=== PATIENT | female | born 1995 | race African-American/Black ===

== ENCOUNTER 2018-08-07 16:54 | Emergency (ER) | payer OTHER ==
[2018-08-07 17:07] VITALS: TEMP 97.7; BMI 19.5
--- NOTE | 2018-08-07 17:08 | PDOC ---
Rapid Medical Evaluation Chief Complaint: Chest Pain Time Seen by Provider: 08/07/18 17:04 Medical Evaluation: Allergies Allergy/AdvReac Type Severity Reaction Status Date / Time No Known Allergies Allergy Verified 08/02/15 13:48 08/07/18 17:05 I have performed a brief in-person evaluation of this patient. The patient presents with a chief complaint of: chest pain, "breathing makes my whole face numb" - recent cardiac ablation for WPW at [facility] on Friday by Dr. Banda, cards is Dr. Nair. denies shortness of breath or pleuritic chest pain. 09/23 pain. LMP 07/02. got back from [place] week before surgery. denies OCPs/hormones. Pertinent physical exam findings: well appearing, HR 95, O2 sat 100% I have ordered the following: EKG, labs The patient will proceed to the ED for further evaluation.
--- NOTE | 2018-08-07 18:02 | PDOC ---
Documentation entered by Jhonny Oscar SCRIBE, acting as scribe for Stephany Quiroz MD. Stephany Quiroz MD: This documentation has been prepared by the reginaibe, Jhonny Oscar SCRIBE, under my direction and personally reviewed by me in its entirety. I confirm that the documentation accurately reflects all work, treatment, procedures, and medical decision making performed by me. Attending Attestation - Resident Resident Name: Lynn Watts - ED Attending Attestation I have performed the following: I have examined & evaluated the patient, The case was reviewed & discussed with the resident, I agree w/resident's findings & plan - HPI HPI: 08/07/18 18:33 The patient is a 23 year old female with h/o WPW s/p recent ablation this week - who presents to the emergency department with a sudden onset of chest pain earlier today. The patient reports that she was at home resting today when she had her onset of constant, pulling sensation, and left upper chest pain. The patient states that she contacted her Retail Worker (Korey) who advised the patient to go to [facility] but the patient came here instead. She denies any shortness of breath, palpitations, fever, chills nausea vomiting , diarrhea. It is noted that the patient had a recent ablation 3 days ago at [facility]. recent cardiac ablation for WPW at [facility] on Friday by Dr. Banda, cards is Dr. Nair. Allergies: NKDA Past Medical History: as documented in EMR/HPI Social history: Lives with family. No tobacco, ETOH or drug use. Meds: as documented in EMR PMD: Dr. Koch 08/07/18 18:46 08/07/18 18:47 08/07/18 18:48 08/08/18 09:13 - Physicial Exam PE: 08/07/18 18:02 Agree with the resident's HPI and PE as documented in the electronic medical record. NAD, well appearing, PERRL, EOMI, MMM, nl conjunctiva, anicteric; neck supple. lungs clear, RRR, no murmur, abdomen soft nontender. PALM x4, no focal neuro deficits. No peripheral edema. normal color for ethnicity, WWP. right groin access site healed, no bleeding 08/08/18 09:13 - Medical Decision Making 08/07/18 18:02 See HPI for details. Prior notes reviewed, including admissions, discharges and consultations. Vital signs reviewed, wnl. laboratory results and imaging reviewed, basic labs and lytes wnl Cardiac panel_positive, post procedure? EKG normal sinus rhythm at 66 bpm, no interval abnormalities, narrow QRS, ST and T wave segments and morphology normal. Nonspecific T wave abnormalities with TWI in III only, prior EKG with WPW. 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 should get EP eval given her recent procedure there, cards eval. 08/07/18 19:09 08/08/18 09:14 Heart Score/ECG Review #1 ECG reviewed & interpreted by me at: 18:35 General ECG Interpretation: Sinus Rhythm, Normal Rate, Normal Intervals Compared to previous ECG there are: Changes noted 08/07/18 19:11 EKG normal sinus rhythm at 66 bpm, no interval abnormalities, narrow QRS, ST and T wave segments and morphology normal. Nonspecific T wave abnormalities with TWI in III only, prior EKG with WPW.
--- NOTE | 2018-08-07 18:24 | PDOC ---
History of Present Illness - General Chief Complaint: Chest Pain Stated Complaint: CHEST PAIN Time Seen by Provider: 08/07/18 17:04 - History of Present Illness Initial Comments: 08/07/18 18:20 The patient is a 23 year old female with a PMH WPW (s/p atrial ablation on 08/04) who presents with chest pain. Pain is constant, "pulling" and started acutely this afternoon while patient was at home and arguing with her mother. No associated lightheadedness, palpitations, shortness of breath. Patient notes her ablation was incomplete and there may be a residual accessory pathway. Patient called her machine compositor, Dr. Nair who said patient should go to the [place] ED (patient had her ablation at ) however however states her friends who were bringing her to the hospital had plans and could not take her to [place]. States she was short of breath Friday post procedure, however that has since resolved. Denies any new lower extremity swelling. Allergy: Latex Surgical: Atrial Ablation (08/04/18) Social: daily marijuana smoker (last inhalation prior to surgery), denies other toxic habits Cardiology: Dr. Nair Past History - Past Medical History Allergies/Adverse Reactions: Allergies Allergy/AdvReac Type Severity Reaction Status Date / Time cat dander Allergy Verified 08/07/18 17:07 dog dander Allergy Verified 08/07/18 17:07 Home Medications: Ambulatory Orders Azithromycin [Zithromax Tri-Eric (3 DAYS) -] 500 mg PO DAILY #3 tablet 08/02/15 Ibuprofen [Motrin -] 600 mg PO QID PRN #20 tablet 08/02/15 Cardiac Disorders: Yes (WPW) COPD: No - Suicide/Smoking/Psychosocial Hx Smoking History: Never smoked Information on smoking cessation initiated: No Hx Alcohol Use: No Drug/Substance Use Hx: No Substance Use Type: None Review of Systems - Review of Systems Constitutional: No: Chills, Fever HEENTM: No: Recent change in vision, Double Vision Respiratory: No: Cough, Shortness of Breath, Wheezing Cardiac (ROS): Yes: Chest Pain. No: Lightheadedness, Palpitations, Syncope ABD/GI: No: Constipated, Diarrhea, Nausea, Vomiting *Physical Exam - Vital Signs Last Vital Signs Temp Pulse Resp BP Pulse Ox 97.7 F 95 H 18 110/71 100 05/24/19 17:03 08/07/18 17:03 08/07/18 17:03 08/07/18 17:03 08/07/18 17:03 - Physical Exam Comments: 08/07/18 18:29 Awake, alert, pleasant CV: S1, S2, RRR, reproducible anterior chest wall pain Respiratory: CLTA B/L Abdomen: soft, non-tender, (+) bowel sounds Extremity: 2+ DP pulses, no edema Neuro: A&O x3, CN II-XII intact Integumentary: R groin ablation wound non-erythematous, no noted discharge Heart Score/ECG Review - ECG Impressions Comment:: 08/07/18 18:50 EKG shows NSR HR 66, no SHARI/STD ED Treatment Course - LABORATORY CBC & Chemistry Diagram: 08/07/18 18:00 08/07/18 18:00 Medical Decision Making - Medical Decision Making 08/07/18 18:27 23 year old female s/p Atrial Ablation 3 days previous presents with chest pain. VS unremarkable. RRR on cardiac auscultation. PLAN: Will evaluate patient for acute ischemic event including r/o ACS and treat for post operative pain. Low clinical suspicion for PE given patient VS, no active c/o dyspnea/tachypnea. Troponin, CBC/CMP, EKG, serum , CXR. Tylenol and IV hydration. Reassess. 08/07/18 18:49 EKG non-ischemic as documented in EKG section of EMR Labs including Troponin pending 08/07/18 18:58 Patient signed out to Dr. Rodriguez (Resident) and Dr. Gross (Attending) - labs pending, will contact cardiology and discuss possible transfer to for evaluation by EP *DC/Admit/Observation/Transfer Diagnosis at time of Disposition: Chest pain - Referrals Referrals: Belén Koch [Primary Care Provider] - - Patient Instructions - Post Discharge Activity
[2018-08-07 18:44] LABS: BASO % 0.6 % (0-2.0); EOS % 0.6 % (0-4.5); HEMATOCRIT 42.8 % (32.4-45.2); HEMOGLOBIN 14.3 GM/dL (10.7-15.3); LYMPH % 27.9 % (8-40); MCH 28.6 pg (25.7-33.7); MCHC 33.4 g/dl (32.0-36.0); MEAN CELL VOLUME 85.7 fl (80-96); MEAN PLT VOLUME 8.7 fl (7.5-11.1); MONO % 10.3 % (3.8-10.2); NEUT % 60.6 % (42.8-82.8); PLATELET COUNT 299 K/MM3 (134-434); RBC 4.99 M/mm3 (3.60-5.2); RDW 13.5 % (11.6-15.6); WHITE BLOOD COUNT 6.8 K/mm3 (4.0-10.0)
[2018-08-07] MEDS ORDERED: SODIUM CHLORIDE 0.9% 500 ML INFUS.BAG IV ONE (18:48)
[2018-08-07] MEDS ORDERED: ACETAMINOPHEN 1000 MG/100 ML VIAL (NON FORMULARY) IVPB ONE (18:48)
[2018-08-07] MEDS ORDERED: ACETAMINOPHEN INJECTION 100 ML IVPB ONE (18:59)
--- NOTE | 2018-08-07 19:05 | PDOC ---
*Physical Exam - Vital Signs Last Vital Signs Temp Pulse Resp BP Pulse Ox 97.7 F 95 H 18 110/71 100 08/07/18 17:03 08/07/18 17:03 08/07/18 17:03 08/07/18 17:03 08/07/18 17:03 - Physical Exam Comments: GENERAL: Awake, alert, and oriented to person/place/time, in no acute distress HEAD: No signs of trauma, normocephalic, atraumatic EYES: PERRLA, EOMI, sclera anicteric, conjunctiva clear ENT: Hearing grossly normal, nares patent, oropharynx clear without exudates. Moist mucosa LUNGS: No distress, speaks full sentences, clear to auscultation bilaterally HEART: Regular rate and rhythm CHEST: Incision appropriately TTP; C/D/I NEUROLOGICAL: Cranial nerves II through XII grossly intact. Normal speech, normal gait, no focal sensorimotor deficits SKIN: Warm, Dry ED Treatment Course - LABORATORY CBC & Chemistry Diagram: 08/07/18 18:00 08/07/18 18:00 Medical Decision Making - Medical Decision Making I have assumed care of the patient from Dr. Watts, who has discussed the clinical presentation, work-up, and ED course thus far. I have reviewed the patients medical record and ED course and agree with all aspects of care thus far. Surgical: s/p atrial ablation (08/04/18) Social: +Marijuana; Denies other ilicit drug use Cardiology: Dr. Nair Interventional: Dr. Banda 08/07/18 19:19 Case discussed w/ patient's Returned Materials Inspector at [facility] (Dr. Banda) who states that the pt was technically difficult to access and recommended obtaining a CT A&P w/ IV contrast to evaluate for hematoma/aneurysm/ pseudoaneurysm. At this time he does not recommend transfer to [place]. 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 Otherwise no acute pathology. Trop 0.11, likely post-procedural elevation No leukocytosis No anemia Lytes wnl No MELINA LFTs unremarkable BNP wnl Serum preg neg Findings discussed w/ Dr. Bnada and patient, plan for D/C w/ Cardiology and PCP f/u. Discharge instructions and return precautions given Pt in agreement and verbalized understanding Dispo: home *DC/Admit/Observation/Transfer Diagnosis at time of Disposition: Hematoma Chest pain Qualifiers: Chest pain type: unspecified Qualified Code(s): R07.9 - Chest pain, unspecified - Discharge Dispostion Disposition: HOME Decision to Admit order: No - Referrals Referrals: Belén Koch [Primary Care Provider] - Arsenio Nair MD [Staff Physician] - - Patient Instructions Printed Discharge Instructions: DI for Atypical Chest Pain Additional Instructions: You were seen in the Emergency Department for evaluation of chest pain and right groin pain after an ablation. Your Troponin was slightly elevated which can be typical after a procedure. Your CT was significant for a right inguinal hematoma versus aneurysm versus pseudoaneurysm but no other acute findings. Please follow up with Dr. Banda. Return to the Emergency Department if you develop fevers/chills, worsening pain, trouble breathing, dizziness, vision changes, abdominal pain, blood in your urine or stool, or any new/concerning symptoms. - Post Discharge Activity
[2018-08-07 19:14] LABS: BILIRUBIN,TOTAL 0.5 mg/dL (0.2-1); CALCIUM 9.2 mg/dL (8.5-10.1); CREATININE 0.8 mg/dL (0.55-1.3); MAGNESIUM 1.9 mg/dL (1.8-2.4); POTASSIUM 4.1 mmol/L (3.5-5.1); TOT PROT 7.2 g/dl (6.4-8.2)
[2018-08-07 19:30] LABS: INR 1.1 (0.83-1.09)
--- NOTE | 2018-08-07 20:02 | PDOC ---
*Physical Exam - Vital Signs Last Vital Signs Temp Pulse Resp BP Pulse Ox 97.7 F 95 H 18 110/71 100 08/07/18 17:03 08/07/18 17:03 08/07/18 17:03 08/07/18 17:03 08/07/18 17:03 ED Treatment Course - LABORATORY CBC & Chemistry Diagram: 08/07/18 18:00 08/07/18 18:00 - ADDITIONAL ORDERS Additional order review: Laboratory Results 08/07/18 08/07/18 08/07/18 18:10 18:00 18:00 PT with INR INR Sodium 140 Potassium 4.1 Chloride 105 Carbon Dioxide 31 Anion Gap 4 L BUN 10 Creatinine 0.8 Est GFR (CKD-EPI)AfAm 121.29 Est GFR (CKD-EPI)NonAf 104.65 Random Glucose 76 Calcium 9.2 Magnesium 1.9 Total Bilirubin 0.5 AST 13 L ALT 18 Alkaline Phosphatase 90 Creatine Kinase 76 Troponin I 0.11 H B-Natriuretic Peptide 25.1 Total Protein 7.2 Albumin 4.0 Serum , Qual Negative 08/07/18 18:00 PT with INR 13.00 INR 1.10 H Sodium Potassium Chloride Carbon Dioxide Anion Gap BUN Creatinine Est GFR (CKD-EPI)AfAm Est GFR (CKD-EPI)NonAf Random Glucose Calcium Magnesium Total Bilirubin AST ALT Alkaline Phosphatase Creatine Kinase Troponin I B-Natriuretic Peptide Total Protein Albumin Serum , Qual 08/07/18 18:00 RBC 4.99 MCV 85.7 MCHC 33.4 RDW 13.5 MPV 8.7 Neutrophils % 60.6 Lymphocytes % 27.9 Monocytes % 10.3 H Eosinophils % 0.6 Basophils % 0.6 - Medications Given in the ED: ED Medications Discontinued Medications Generic Name Dose Route Start Last Admin Trade Name Freq PRN Reason Stop Dose Admin Acetaminophen 1,000 mg 08/07/18 18:48 08/07/18 19:04 Ofirmev Injection - IVPB 08/07/18 18:49 1,000 mg ONCE ONE Administration Sodium Chloride 1,000 ml 08/07/18 18:48 08/07/18 19:27 Normal Saline - IV 08/07/18 18:49 1,000 ml ONCE ONE Administration Medical Decision Making - Medical Decision Making 08/07/18 19:59 Picked up pt on signout. She just had card ablation of her WPW at [facility] on 3 days back; now with CP; Pt has normal labs byut elevated Trop, which may be expected. However she requires echocardiogram at this time, and we have no echo here. I spoke to Dr. Edson Banda's (EP cards at [facility]) protection specialist ESTATE ADMINISTRATOR [place], and she agrees pt requires transfer to the ER. We are calling ER for transfer and have spoken to the attg in the ER, who will check with Nurse e business project manager before he accepts the transfer. 08/07/18 20:22 Dr. Banda called us; he has been speaking to the patient and she has no CP at this time; he is confident that pt has no heart issues at this time. He is concerned however that pt has a right flank pain. and that during the ablation he fears that he may have caused intraabdominal or retroperitoneal bleeding, because she had "tight access" Pt had complained of abd pain during the ablation and of flank pain after the ablation, then the day after the ablation she returned to the [facility] ER, and today again some mild flank pain. Solo agrees that pt needs a CT AP at this time, as she has been complaining of flank pain for days. 08/07/18 22:24 CT AP is normal. Pt has no pain at this time. She will e picked up by her cousin and she is stable for d/c home. Pt will follow with Dr. Banda on August 19. *DC/Admit/Observation/Transfer Diagnosis at time of Disposition: Hematoma Chest pain Qualifiers: Chest pain type: unspecified Qualified Code(s): R07.9 - Chest pain, unspecified - Discharge Dispostion Disposition: HOME - Referrals Referrals: Arsenio Nair MD [Staff Physician] - Belén Koch [Primary Care Provider] - - Patient Instructions Printed Discharge Instructions: DI for Atypical Chest Pain Additional Instructions: You were seen in the Emergency Department for evaluation of chest pain and right groin pain after an ablation. Your Troponin was slightly elevated which can be typical after a procedure. Your CT was significant for a right inguinal hematoma versus aneurysm versus pseudoaneurysm but no other acute findings. Please follow up with Dr. Banda. Return to the Emergency Department if you develop fevers/chills, worsening pain, trouble breathing, dizziness, vision changes, abdominal pain, blood in your urine or stool, or any new/concerning symptoms. - Post Discharge Activity
[2018-08-07] MEDS ORDERED: diphenhydrAMINE HCL 25 MG CAPSULE (FP) PO ONE ×2 (20:19→20:32)
[2018-08-07 22:37] VITALS: BP 122/78; PULSE 86
--- NOTE | 2018-08-08 15:35 | EKG ---
Test Reason : Blood Pressure : / mmHG Vent. Rate : 088 BPM Atrial Rate : 088 BPM P-R Int : 142 ms QRS Dur : 078 ms QT Int : 362 ms P-R-T Axes : 063 061 003 degrees QTc Int : 438 ms NORMAL SINUS RHYTHM NORMAL ECG WHEN COMPARED WITH ECG OF 13-MAY-2018 11:05, QRS DURATION HAS DECREASED CRITERIA FOR INFERIOR INFARCT ARE NO LONGER PRESENT ST NO LONGER DEPRESSED IN LATERAL LEADS T WAVE INVERSION NOW EVIDENT IN INFERIOR LEADS T WAVE AMPLITUDE HAS DECREASED IN ANTERIOR LEADS T WAVE INVERSION NO LONGER EVIDENT IN LATERAL LEADS QT HAS SHORTENED Confirmed by MD Salo, Vini ([id number]) on 08/08/2018 3:34:44 PM Referred By: Confirmed By:Vini Leong MD
--- NOTE | 2018-08-09 14:18 | EKG ---
Test Reason : Blood Pressure : / mmHG Vent. Rate : 066 BPM Atrial Rate : 066 BPM P-R Int : 140 ms QRS Dur : 086 ms QT Int : 400 ms P-R-T Axes : 051 063 018 degrees QTc Int : 419 ms NORMAL SINUS RHYTHM WITH SINUS ARRHYTHMIA NORMAL ECG WHEN COMPARED WITH ECG OF 07-AUG-2018 16:53, NO SIGNIFICANT CHANGE WAS FOUND Confirmed by MD Leong Daniel ([id number]) on 08/09/2018 2:18:22 PM Referred By: Confirmed By:Vini Leong MD
== END 2018-08-07 22:30 | disposition home or self-care (01) ==
LOC: JER 16:54
PROC: 3E033NZ Introduction of Analgesics, Hypnotics, Sedatives into Peripheral Vein, Percutaneous Approach (ICD-10-PCS; principal; 2018-08-07)
DX: R07.9 Chest pain, unspecified (principal); T14.8XXA Other injury of unspecified body region, initial encounter; Z98.890 Other specified postprocedural states
CPT/HCPCS: 36415; 71045-TC-FY; 74177-TC; 80053; 82550; 83735; 83880; 84484; 84703; 85025; 85610; 93005; 93010; 99283-25; J0131

== ENCOUNTER 2019-09-20 12:25 | Emergency (ER) | payer OTHER ==
[2019-09-20] MEDS ORDERED: PANTOPRAZOLE SODIUM 40 MG VIAL IVPUSH ONE (12:50)
[2019-09-20] MEDS ORDERED: SODIUM CHLORIDE 0.9% 500 ML INFUS.BAG IV ONE (12:50)
[2019-09-20] MEDS ORDERED: METOCLOPRAMIDE HCL INJECTION 10 MG/2 ML VIAL IVPUSH ONE (12:52)
--- NOTE | 2019-09-20 12:54 | PDOC ---
History of Present Illness - General Chief Complaint: Nausea/Vomiting Stated Complaint: NAUSEA/VOMITING Time Seen by Provider: 09/20/19 12:42 History Source: Patient Exam Limitations: No Limitations - History of Present Illness Initial Comments: 24 year old female pmhx of WPW s/p ablation with ILR, asthma, anxiety, seasonal allergies presents to the ED BIBA complaining of nausea and vomiting x 5 days seen at urgent care 2 days ago and given zofran without relief. Pt reports multiple episodes of vomiting throughout the day exacerbated with food but is able to tolerate PO fluids. Pt states her emesis is yellow and that now she is mostly dry heaving. Pt is also complaining of a few episodes of NB diarrhea. Pt states that her bouts of nausea are preceded by intermittent crampy diffuse abdominal pain. Pt states that she has had similar symptoms in the past, and over the last few months has been having episodes of nausea with vomiting at least twice a month. Pt is followed by PCP Dr Alanis and shellfish sorter. Pt otherwise denies: fevers, chills, syncope, lightheadedness, dizziness, headaches, changes in vision, changes in hearing, neck pain, chest pain, shortness of breath, palpitations, back pain, constipation, melena, hematochezia, dysuria, hematuria, increased urinary frequency/urgency, vaginal bleeding, vaginal discharge. 09/20/19 13:10 Past History - Medical History Allergies/Adverse Reactions: Allergies Allergy/AdvReac Type Severity Reaction Status Date / Time cat dander Allergy Verified 08/07/18 17:07 cephalexin Allergy Verified 09/20/19 12:42 dog dander Allergy Verified 08/07/18 17:07 doxycycline Allergy Verified 09/20/19 12:42 Home Medications: Ambulatory Orders Albuterol Sulfate [Albuterol Sulfate Hfa] 2 puff IH QID PRN 09/20/19 Cetirizine HCl 10 mg PO BID 09/20/19 Famotidine [Pepcid] 40 mg PO DAILY 10 Days #10 tablet 09/20/19 Ondansetron HCl [Zofran] 4 mg PO Q6H PRN 09/20/19 Cardiac Disorders: Yes (WPW) COPD: No - Surgical History Cardiac Surgery: Yes (ABLATION, ILR) - Psycho-Social/Smoking History Smoking History: Never smoked Have you smoked in the past 12 months: No Information on smoking cessation initiated: No - Substance Abuse Hx (Audit-C & DAST Scrn) How often the patient has a drink containing alcohol: Never Score: In Men: 4 or > Positive; In Women: 3 or > Positive: 0 Screen Result (Pos requires Nsg. Audit-10AR): Negative In the last yr the pt used illegal drug/Rx for NonMed reason: Yes Score: Yes response is considered Positive: 1 Screen Result (Positive result requires Nsg. DAST-10): Positive Review of Systems - Review of Systems Constitutional: No: Chills, Fever, Night Sweats, Weakness HEENTM: No: Throat Pain, Difficulty Swallowing Respiratory: No: Cough, Shortness of Breath, Wheezing Cardiac (ROS): No: Chest Pain, Lightheadedness, Palpitations ABD/GI: Yes: Diarrhea, Nausea, Poor Appetite, Vomiting, Abdominal cramping. No: Abdominal Distended, Abd. Pain w/ defecation : No: Burning, Dysuria, Discharge Musculoskeletal: No: Back Pain Neurological: No: Headache, Numbness, Paresthesia, Tingling *Physical Exam - Vital Signs Last Vital Signs Temp Pulse Resp BP Pulse Ox 98.2 F 62 18 106/72 98 09/20/19 12:42 09/20/19 12:42 09/20/19 12:42 09/20/19 12:42 09/20/19 12:42 - Physical Exam Gen: AAOx 3, no acute distress, comfortable, no signs of respiratory distress HENT: atraumatic, normocephalic with no laceration or contusion. Nasal mucosa without erythema. Oropharynx without erythema or exudates. Mucous membranes moist. EYES: PERRL, EOM intact, conjunctiva pink NECK: supple; trachea midline; no JVD, no lymphadenopathy, or thyromegaly CV: RRR no murmurs, gallops, or rubs. CHEST: CTA b/l no wheezing, rales or rhonchi ABD: +BS/ND. no TTP; soft, no rebound, no guarding EXTREMITY: no cyanosis or erythema. 2+ dorsalis pedis, posterior tibial, and radial pulse. No pedal edema; no calf swelling or tenderness SKIN: no rash, warm and dry, no diaphoresis HEME: no purpura or ecchymosis NEURO: normal speech, CN II-XII intact, sensation intact, normal gait, no cerebellar deficits MS: 5/5 strength in all extremities, FROM intact in all extremities. ED Treatment Course - LABORATORY CBC & Chemistry Diagram: 09/20/19 15:40 09/20/19 15:40 Medical Decision Making - Medical Decision Making 24 year old female presenting with 5 days N/V/D. Able to tolerate PO fluids. Benign abdominal exam, VSS. Pt appears well and is in NAD, walking and talking on cell phone in the ED. Has not vomited in ED or on ambulance. Plan: Will obtain CBC to r/o leukocytosis , BMP to check electrolyte function and creatinine levels, coags for liver function and LFTs, urine preg, UA Will give reglan, NS and protonix for symptomatic relief. Will reassess based on results. Labs WNL, pt tolerating PO fluids in ED, appears well and reports feeling much better. Perscription sent for 10 days of famotidine and pt to follow up with GI and PCP within 2 days. Strict return precautions given to patient. Pt is safe and stable for discharge. Supportive care instructions explained and given to pt. Reasons to return emergently to ER explained and given. Importance of follow up with PMD and other specialists as indicated stressed to pt. Pt verbalized understanding of instructions. Pt to follow up with PMD in 2 days. Discharge - Discharge Information Problems reviewed: Yes Clinical Impression/Diagnosis: Gastritis Qualifiers: Gastritis type: unspecified gastritis Chronicity: acute Gastritis bleeding: without bleeding Qualified Code(s): K29.00 - Acute gastritis without bleeding Condition: Stable Disposition: HOME - Admission No - Additional Discharge Information Prescriptions: Famotidine [Pepcid] 40 mg PO DAILY 10 Days #10 tablet - Follow up/Referral - Patient Discharge Instructions - Post Discharge Activity
[2019-09-20 13:01] VITALS: BP 106/72; PULSE 62; TEMP 98.2; BMI 19.7
[2019-09-20 14:21] LABS: INR 1.02 (0.83-1.09)
[2019-09-20 15:17] LABS: URINE APPEARANCE CLOUDY; URINE BILIRUBIN NEGATIVE (NEGATIVE); URINE COLOR YELLOW; URINE GLUCOSE (UA) NEGATIVE (NEGATIVE); URINE KETONE 2+ (NEGATIVE); URINE LEUK ESTERASE NEGATIVE (NEGATIVE); URINE NITRITE NEGATIVE (NEGATIVE); URINE PROTEIN NEGATIVE (NEGATIVE)
[2019-09-20 15:58] LABS: BASO % 0.6 % (0-2.0); EOS % 0.3 % (0-4.5); HEMATOCRIT 36.6 % (32.4-45.2); HEMOGLOBIN 12.2 GM/dL (10.7-15.3); LYMPH % 19.5 % (8-40); MCH 29.1 pg (25.7-33.7); MCHC 33.2 g/dl (32.0-36.0); MEAN CELL VOLUME 87.6 fl (80-96); MEAN PLT VOLUME 8.4 fl (7.5-11.1); MONO % 7.1 % (3.8-10.2); NEUT % 72.5 % (42.8-82.8); PLATELET COUNT 248 K/MM3 (134-434); RBC 4.18 M/mm3 (3.60-5.2); RDW 13.4 % (11.6-15.6); WHITE BLOOD COUNT 6.1 K/mm3 (4.0-10.0)
[2019-09-20 15:59] LABS: ACTIVATED PTT 32.4 SECONDS (25.2-36.5)
[2019-09-20 16:26] LABS: ALBUMIN 3.8 g/dl (3.4-5.0); BILIRUBIN,TOTAL 0.8 mg/dL (0.2-1); BLOOD UREA NITROGEN 8.5 mg/dL (7-18); CALCIUM 8.5 mg/dL (8.5-10.1); CREATININE 0.7 mg/dL (0.55-1.3); POTASSIUM 3.9 mmol/L (3.5-5.1); TOT PROT 6.3 g/dl (6.4-8.2)
== END 2019-09-20 17:00 | disposition home or self-care (01) ==
LOC: JER 12:25
PROC: 3E033GC Introduction of Other Therapeutic Substance into Peripheral Vein, Percutaneous Approach (ICD-10-PCS; principal; 2019-09-20)
DX: K29.00 Acute gastritis without bleeding (principal)
CPT/HCPCS: 36415; 76937; 80053; 80074; 81003; 83690; 84703; 85025; 85610; 85730; 87086; 99284-25

== ENCOUNTER 2019-09-21 11:11 | Emergency (ER) | payer OTHER ==
[2019-09-21 11:22] VITALS: BP 127/86; PULSE 76; TEMP 98.1; BMI 19.1
--- NOTE | 2019-09-21 13:35 | PDOC ---
History of Present Illness - General Chief Complaint: Nausea/Vomiting Stated Complaint: NUMBNESS/ABD PAIN Time Seen by Provider: 09/21/19 11:28 History Source: Patient Exam Limitations: No Limitations - History of Present Illness Initial Comments: 09/21/19 13:22 24 year old female pmhx of WPW s/p ablation with ILR, asthma, anxiety, seasonal allergies presents to the ED BIBA complaining of nausea and vomiting x 7 days. Seen in the ED yesterday -- "Labs WNL, pt tolerating PO fluids in ED, appears well and reports feeling much better. Prescription sent for 10 days of famotidi ne and pt to follow up with GI and PCP within 2 days. 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 Patient states the vomiting started in 2015 around 6 months after she began using cannabis, and has been intermittent since. She currently uses 2g of cannabis per day. She states this episode began around 7 days. Multiple episodes per day. Emesis is yellow and now moslty dry heaving. Also complains of NB diarrhea for 3 days. Able to eat soft foods. Pt otherwise denies: fevers, chills, syncope, lightheadedness, dizziness, headaches, changes in vision, changes in hearing, neck pain, chest pain, shortness of breath, palpitations, back pain, constipation, melena, hematochezia, dysuria, hematuria, increased urinary frequency/urgency, vaginal bleeding, vaginal discharge. PMH/PSH: as above Meds: zofran, ceterizine, albuterol Allergies: cephalexin and doxycycline FH: non-contributory SH: daily cannabis use, no tobacco use ROS: as above PE: Gen: well appearing, NAD HEENT: PEARLA, EOMI, MMM Neck: supple Heart: RRR Lungs: CTAB Abdomen: soft, no rigidity or guarding, no rebound tenderness, distractable tenderness to deep palpation in RLQ. Ext: no edema Neuro: no focal deficits Past History - Medical History Allergies/Adverse Reactions: Allergies Allergy/AdvReac Type Severity Reaction Status Date / Time cat dander Allergy Verified 09/21/19 11:19 cephalexin Allergy Verified 09/21/19 11:19 dog dander Allergy Verified 09/21/19 11:19 doxycycline Allergy Verified 09/21/19 11:19 Home Medications: Ambulatory Orders Albuterol Sulfate [Albuterol Sulfate Hfa] 2 puff IH QID PRN 09/20/19 Cetirizine HCl 10 mg PO BID 09/20/19 Famotidine [Pepcid] 40 mg PO DAILY 10 Days #10 tablet 09/20/19 Ondansetron HCl [Zofran] 4 mg PO Q6H PRN 09/20/19 Famotidine [Pepcid -] 20 mg PO DAILY #30 tablet 09/21/19 Cardiac Disorders: Yes (WPW) COPD: No - Surgical History Cardiac Surgery: Yes (ABLATION, ILR) - Psycho-Social/Smoking History Smoking History: Never smoked Have you smoked in the past 12 months: No Information on smoking cessation initiated: No - Substance Abuse Hx (Audit-C & DAST Scrn) How often the patient has a drink containing alcohol: Never Score: In Men: 4 or > Positive; In Women: 3 or > Positive: 0 Screen Result (Pos requires Nsg. Audit-10AR): Negative In the last yr the pt used illegal drug/Rx for NonMed reason: Yes Score: Yes response is considered Positive: 1 Screen Result (Positive result requires Nsg. DAST-10): Positive *Physical Exam - Vital Signs Last Vital Signs Temp Pulse Resp BP Pulse Ox 98.1 F 76 18 127/86 98 09/21/19 11:20 09/21/19 11:20 09/21/19 11:20 09/21/19 11:20 09/21/19 11:20 Medical Decision Making - Medical Decision Making 09/21/19 13:58 24 year old female pmhx of WPW s/p ablation with ILR, asthma, anxiety, seasonal allergies presents to the ED BIBA complaining of nausea and vomiting x 7 days. Based off history, most likely cyclic vomiting disorder secondary to heavy daily cannabis use. Was seen in ED yesterday with negative workup and returned for persistent symptoms. Tolerating PO, and will DC with famotidine and GI f/u. Appendicitis unlikely given time course, benign exam, and normal labs yesterday. -c/w zofran -famotidine -DC home with PCP/GI f/u -Agreeable to stop cannabis use to prevent these symptoms Discharge - Discharge Information Problems reviewed: Yes Clinical Impression/Diagnosis: Cannabinoid hyperemesis syndrome Condition: Improved Disposition: HOME - Admission No - Additional Discharge Information Prescriptions: Famotidine [Pepcid -] 20 mg PO DAILY #30 tablet - Follow up/Referral Referrals: Sergei Ball DO [Staff Physician] - Juanis Fritz MD [Staff Physician] - Patricia Small MD [Primary Care Provider] - - Patient Discharge Instructions Additional Instructions: You were seen in the ED for vomiting and abdominal pain. Your likely diagnosis is cyclical vomiting syndrome due to cannabis use (cannabinoid hyperemesis) -- vomiting caused by marijuana use. You can continue to use your anti-nausea medication as needed, and Pepcid (famotidine) was sent to the pharmacy. Please see a PCP and GI within a week. Please call your PCP or return to the ED for continued or worsening vomiting and abdominal pain, or if you develop fever/chills, or any other reason. - Post Discharge Activity
--- NOTE | 2019-09-21 13:37 | PDOC ---
Attending Attestation - Resident Resident Name: Yaakov Hernandez - ED Attending Attestation I have performed the following: I have examined & evaluated the patient, The case was reviewed & discussed with the resident, I agree w/resident's findings & plan - HPI HPI: 09/21/19 13:38 24y/o F h/o daily marijuana use, cyclical vomiting syndrome presumably 2/2 marijuana use, seen in several EDs for same, including recent urgent care visit (d/c on zofran) and seen here yesterday for same (discharged after labs wnl including lipase) presents now for painless vomiting. same as prior, reports vomiting clear/yellow fluid, no persistent abd pain, no f/c. admits to smoking marijuana again last night after leaving the ED. has not had GI evaluation or motility studies. - Physicial Exam PE: 09/21/19 13:40 vss, negative on 09/19 alert, comfortable seated in stretcher no jaundice/pallor, mmm heart regular, lungs clear abd soft/nt/nd bs nl. mild epigastric discomfort to palpation without guardin g/rebound no edema. no rash psych wnl - Medical Decision Making 09/21/19 13:43 24-year-old female with cyclical vomiting syndrome likely secondary to daily marijuana use presents with typical vomiting symptoms, no persistent abdominal pain or peritoneal findings to suggest acute process. Lab work was normal yesterday, patient symptomatically improved after taking her home Zofran. tolerating PO here with benign exam no indication for repeat testing agrees with GI referral, understands return criteria Heart Score/ECG Review #1 ECG reviewed & interpreted by me at: 12:21 General ECG Interpretation: Sinus Rhythm, Normal Rate (49), Normal Intervals (qtc 415), No acute ischemic changes Discharge - Discharge Information Problems reviewed: Yes Clinical Impression/Diagnosis: Cannabinoid hyperemesis syndrome Condition: Improved - Follow up/Referral Referrals: Patricia Small MD [Primary Care Provider] - - Patient Discharge Instructions - Post Discharge Activity
--- NOTE | 2019-09-22 10:43 | EKG ---
Test Reason : Blood Pressure : / mmHG Vent. Rate : 049 BPM Atrial Rate : 049 BPM P-R Int : 124 ms QRS Dur : 080 ms QT Int : 460 ms P-R-T Axes : 042 058 040 degrees QTc Int : 415 ms SINUS BRADYCARDIA CANNOT RULE OUT ANTERIOR INFARCT , AGE UNDETERMINED ABNORMAL ECG WHEN COMPARED WITH ECG OF 14-JUN-2019 02:09, VENT. RATE HAS DECREASED BY 39 BPM QT HAS SHORTENED Confirmed by MD Salo, Vini ([id number]) on 09/22/2019 10:43:00 AM Referred By: Confirmed By:Vini Leong MD
== END 2019-09-21 13:50 | disposition home or self-care (01) ==
LOC: JER 11:11
DX: T40.7X1A Poisoning by cannabis (derivatives), accidental (unintentional), initial encounter (principal); R11.2 Nausea with vomiting, unspecified
CPT/HCPCS: 93005; 93010; 99283-25

== ENCOUNTER 2020-04-13 04:22 | Emergency (ER) | payer OTHER ==
[2020-04-13] MEDS ORDERED: LACTATED RINGERS SOLUTION 1000 ML INFUS.BAG IV ONE (05:08)
[2020-04-13] MEDS ORDERED: FAMOTIDINE 20 MG/50 ML IVPB 20 MG/50 ML MG IVPB ONE ×2 (05:08→05:23)
[2020-04-13] MEDS ORDERED: METOCLOPRAMIDE HCL INJECTION 10 MG/2 ML VIAL IVPUSH ONE (05:08)
[2020-04-13 05:10] VITALS: BMI 20.3
[2020-04-13] MEDS ORDERED: METOCLOPRAMIDE HCL INJECTION 10 MG/2 ML VIAL ONE (05:22)
[2020-04-13 05:33] LABS: BASO % 0.5 % (0-2.0); EOS % 0.5 % (0-4.5); HEMATOCRIT 39.2 % (32.4-45.2); HEMOGLOBIN 13.5 GM/dL (10.7-15.3); LYMPH % 17.6 % (8-40); MCH 29.2 pg (25.7-33.7); MCHC 34.4 g/dl (32.0-36.0); MEAN PLT VOLUME 8.3 fl (7.5-11.1); MONO % 8.3 % (3.8-10.2); NEUT % 73.1 % (42.8-82.8); PLATELET COUNT 299 K/MM3 (134-434); RBC 4.61 M/mm3 (3.60-5.2); RDW 13.3 % (11.6-15.6); WHITE BLOOD COUNT 15.1 K/mm3 (4.0-10.0)
[2020-04-13 05:53] LABS: CHLORIDE 108 mmol/L (98-107); POTASSIUM 3.5 mmol/L (3.5-5.1); SODIUM 141 mmol/L (136-145)
[2020-04-13 05:55] LABS: CALCIUM 9.2 mg/dL (8.5-10.1)
[2020-04-13 05:56] LABS: ALBUMIN 4.1 g/dl (3.4-5.0); ANION GAP 11 MMOL/L (8-16); BLOOD UREA NITROGEN 11.8 mg/dL (7-18); CO2 22 mmol/L (21-32); GLUCOSE,RANDOM 140 mg/dL (74-106); LIPASE 60 U/L (73-393); MAGNESIUM 1.4 mg/dL (1.8-2.4)
[2020-04-13 05:58] LABS: SGPT/ALT 16 U/L (13-61)
[2020-04-13] MEDS ORDERED: MAGNESIUM SULF 50% (8.12 MEQ/2 ML-1 GM VIAL) IVPB ONE (05:58)
[2020-04-13 05:59] LABS: CREATININE 0.8 mg/dL (0.55-1.3); SGOT/AST 9 U/L (15-37)
[2020-04-13] MEDS ORDERED: MAGNESIUM SULF 50% (8.12 MEQ/2 ML-1 GM VIAL) ONE (05:59)
[2020-04-13 06:00] LABS: BILIRUBIN,TOTAL 0.4 mg/dL (0.2-1); TOT PROT 7.1 g/dl (6.4-8.2)
[2020-04-13 06:01] LABS: ALK PHOS 92 U/L (45-117)
[2020-04-13] MEDS ORDERED: ACETAMINOPHEN 1000 MG/100 ML VIAL (NON FORMULARY) IVPB ONE (06:19)
[2020-04-13] MEDS ORDERED: ACETAMINOPHEN INJECTION 100 ML IVPB ONE (06:21)
[2020-04-13] MEDS ORDERED: HALOPERIDOL LACTATE 5 MG/ML IM ONE (08:45)
[2020-04-13] MEDS ORDERED: HALOPERIDOL LACTATE 5 MG/ML ONE (08:52)
[2020-04-13 10:56] LABS: PH,URINE >= 9.0 (5.0-8.0); URINE APPEARANCE CLOUDY; URINE BILIRUBIN NEGATIVE (NEGATIVE); URINE COLOR YELLOW; URINE GLUCOSE (UA) NEGATIVE (NEGATIVE); URINE KETONE 1+ (NEGATIVE); URINE LEUK ESTERASE NEGATIVE (NEGATIVE); URINE NITRITE NEGATIVE (NEGATIVE); URINE PROTEIN TRACE (NEGATIVE); URINE UROBILINOGEN 0.2 mg/dL (0.2-1.0)
[2020-04-13 11:10] LABS: OPIATES, URI NEGATIVE ng/ml (CUTOFF=300); URINE BARBITURATES NEGATIVE ng/ml (CUTOFF=200); URINE BENZODIAZEPINES NEGATIVE ng/ml (CUTOFF=200)
[2020-04-13 11:11] LABS: COCAINE, UR NEGATIVE ng/ml (CUTOFF=300); METHADONE, UR NEGATIVE ng/ml (CUTOFF=300); PHENCYCLIDINE,URINE NEGATIVE ng/ml (CUTOFF=25); URINE AMPHETAMINES NEGATIVE ng/ml (CUTOFF=500)
[2020-04-13 11:12] LABS: HCG,QUALITATIVE URINE Negative
[2020-04-13 16:19] VITALS: BP 127/68; PULSE 78; TEMP 97.9
== END 2020-04-13 15:15 | disposition home or self-care (01) ==
LOC: JER 04:22
PROC: 3E0333Z Introduction of Anti-inflammatory into Peripheral Vein, Percutaneous Approach (ICD-10-PCS; principal; 2020-04-13)
PROC: 3E023GC Introduction of Other Therapeutic Substance into Muscle, Percutaneous Approach (ICD-10-PCS; 2020-04-13)
PROC: 3E033GC Introduction of Other Therapeutic Substance into Peripheral Vein, Percutaneous Approach (ICD-10-PCS; 2020-04-13)
PROC: 3E033GC Introduction of Other Therapeutic Substance into Peripheral Vein, Percutaneous Approach (ICD-10-PCS; 2020-04-13)
DX: R11.2 Nausea with vomiting, unspecified (principal)
CPT/HCPCS: 36415; 74177-TC; 80053; 80307; 81003; 83690; 83735; 84703; 85025; 93005; 93010; 99285-25; J0131; Q9967